=== PATIENT | female | born 1945 | race Caucasian/White ===

== ENCOUNTER 2017-05-12 23:55 | Emergency (ER) | payer OTHER ==
[~2017-05-12] VITALS: Ht 160 cm; Wt 82.5 kg
[2017-05-13] MEDS ORDERED: ZANTAC150 MG PO (01:11)
[2017-05-13] MEDS ORDERED: DYAZIDE, MA1 CAPSULE PO (01:12)
[2017-05-13] MEDS ORDERED: AZITHROMYCIN250 MG PO (01:13)
[2017-05-13] MEDS ORDERED: SIMVASTATIN40 MG PO (01:13)
[2017-05-13] MEDS ORDERED: TESSALON PERLE100 MG PO (01:24)
[2017-05-13] MEDS ORDERED: ROBITUSSIN AC,T10 ML PO (01:24)
[2017-05-13] MEDS ORDERED: FLONASE16 G1 BOTH NARES (01:24)
[2017-05-13 01:55] VITALS: BP 139/86
== END 2017-05-13 01:57 | disposition home or self-care (01) ==
LOC: EXP 23:55 → EME 23:55 → EXP 05-13 01:57
DX: J06.9 Acute upper respiratory infection, unspecified (principal); E78.5 Hyperlipidemia, unspecified; I10 Essential (primary) hypertension; K21.9 Gastro-esophageal reflux disease without esophagitis; Z88.0 Allergy status to penicillin; Z88.8 Allergy status to other drugs, medicaments and biological substances
CPT/HCPCS: 71020; 99281; 99284

== ENCOUNTER → 2017-12-07 | Outpatient (CLI) | payer OTHER ==
[~2017-12-07] VITALS: Ht 159.3 cm; Wt 83.4 kg
[~2017-12-07] MED LIST: AZITHROMYCIN250 MG PO; BENADRYL25 MG PO; DYAZIDE, MA1 CAPSULE PO; FLONASE ALLERG9.9 ML BOTH NARES; FLONASE16 G1 BOTH NARES; PROBIOTIC1 EAC5 PO; ROBITUSSIN AC,T10 ML PO; SIMVASTATIN40 MG PO; TESSALON PERLE100 MG PO; ZANTAC150 MG PO
== END | disposition home or self-care (01) ==
LOC: AMB 11-30 08:00
PROC: 0DB48ZX Excision of Esophagogastric Junction, Via Natural or Artificial Opening Endoscopic, Diagnostic (ICD-10-PCS; principal; 2017-12-07)
PROC: 0DB38ZX Excision of Lower Esophagus, Via Natural or Artificial Opening Endoscopic, Diagnostic (ICD-10-PCS; principal; 2017-12-07)
PROC: 0DB98ZX Excision of Duodenum, Via Natural or Artificial Opening Endoscopic, Diagnostic (ICD-10-PCS; principal; 2017-12-07)
PROC: 0DB18ZX Excision of Upper Esophagus, Via Natural or Artificial Opening Endoscopic, Diagnostic (ICD-10-PCS; principal; 2017-12-07)
PROC: 0D748ZZ Dilation of Esophagogastric Junction, Via Natural or Artificial Opening Endoscopic (ICD-10-PCS; principal; 2017-12-07)
DX: K22.2 Esophageal obstruction (principal); K44.9 Diaphragmatic hernia without obstruction or gangrene; K31.89 Other diseases of stomach and duodenum; K22.10 Ulcer of esophagus without bleeding; J30.9 Allergic rhinitis, unspecified; R94.5 Abnormal results of liver function studies; R76.8 Other specified abnormal immunological findings in serum; E06.3 Autoimmune thyroiditis; E78.5 Hyperlipidemia, unspecified; I10 Essential (primary) hypertension; E55.9 Vitamin D deficiency, unspecified; Z85.3 Personal history of malignant neoplasm of breast; Z90.49 Acquired absence of other specified parts of digestive tract; Z82.49 Family history of ischemic heart disease and other diseases of the circulatory system; Z80.7 Family history of other malignant neoplasms of lymphoid, hematopoietic and related tissues; Z83.3 Family history of diabetes mellitus; Z83.49 Family history of other endocrine, nutritional and metabolic diseases; Z88.0 Allergy status to penicillin; Z88.8 Allergy status to other drugs, medicaments and biological substances; Z91.040 Latex allergy status
CPT/HCPCS: 88305; 93005; J7643

== ENCOUNTER → 2018-02-01 | Outpatient (CLI) | payer OTHER ==
[~2018-02-01] VITALS: Ht 159.4 cm; Wt 81.6 kg
[~2018-02-01] MED LIST changes: +COLON HERBA1 CAPSULE PO; +UNISOM SLEEP AI25 MG PO
== END | disposition home or self-care (01) ==
LOC: AMB 06:54
DX: Z12.11 Encounter for screening for malignant neoplasm of colon (principal); D12.2 Benign neoplasm of ascending colon; D12.5 Benign neoplasm of sigmoid colon; K62.89 Other specified diseases of anus and rectum; K21.9 Gastro-esophageal reflux disease without esophagitis; E06.3 Autoimmune thyroiditis; K44.9 Diaphragmatic hernia without obstruction or gangrene; I10 Essential (primary) hypertension; Z88.0 Allergy status to penicillin; Z88.5 Allergy status to narcotic agent; Z91.040 Latex allergy status; Z91.048 Other nonmedicinal substance allergy status
CPT/HCPCS: 88305